=== PATIENT | female | born 1955 | race African-American/Black ===

== ENCOUNTER 2018-01-31 02:24 | Emergency (ER) | payer OTHER ==
[2018-01-31 02:42] VITALS: BP 118/73; PULSE 75; TEMP 97.5; BMI 26.6
--- NOTE | 2018-01-31 02:47 | PDOC ---
History of Present Illness - General Chief Complaint: Injury Stated Complaint: FALL/PAIN RT SIDE Time Seen by Provider: 01/31/18 02:32 - History of Present Illness Initial Comments: 01/31/18 02:35 62 year old female with a hx of DM, breast CA presents s/p mechanical fall in bathroom. No LOC, no head trauma reported. Patient states that she hit her R hip. She states pain 4/10 upon movement, 0/10 at rest. Did not take any pain medications. Denies fevers, chills, chest pain, SOB, nausea, vomiting, diarrhea. All: none Surg: shoulder surgeries b/l, L knee surgery Smoke: none Alcohol: none PCP: Dr. Heaton Past History - Travel Traveled outside of the country in the last 30 days: No Close contact w/someone who was outside of country & ill: No - Past Medical History Allergies/Adverse Reactions: Allergies Allergy/AdvReac Type Severity Reaction Status Date / Time aspirin Allergy Verified 01/31/18 03:01 Home Medications: Ambulatory Orders Gabapentin [Neurontin -] 300 mg PO Q8H 01/31/18 Glyburide [Micronase -] 2.5 mg PO DAILY@0700 01/31/18 Metformin HCl [Glucophage] 1,000 mg PO BID 01/31/18 Methocarbamol [Robaxin -] 500 mg PO TID #21 tablet 01/31/18 Cancer: Yes (breast ca) Review of Systems - Review of Systems Constitutional: Yes: Symptoms Reported HEENTM: Yes: Symptoms Reported Respiratory: Yes: Symptoms reported Cardiac (ROS): Yes: Symptoms Reported ABD/GI: Yes: Symptoms Reported : Yes: Symptoms Reported Musculoskeletal: Yes: Symptoms Reported Integumentary: Yes: Symptoms Reported Neurological: Yes: Symptoms reported *Physical Exam - Physical Exam Comments: 01/31/18 03:07 GENERAL: A&Ox3, no acute distress EYES: PERRLA, EOMI ENT: Moist mucus membranes NECK: No JVD LUNGS: CTA, no wheezes HEART: RRR, no murmurs ABDOMEN: Soft, nontender, BS present MUSCULOSKELETAL: No CVA Tenderness EXTREMITIES: 2+ pulses, no edema. NEUROLOGICAL: Cranial nerves II-XII intact Medical Decision Making - Medical Decision Making 01/31/18 03:09 62 year old female with hx of DM and breast CA presented s/p fall -R hip X ray ordered -patient does not currently want any medication for pain 01/31/18 03:19 -R hip X ray does not reveal any acute fractures *DC/Admit/Observation/Transfer Diagnosis at time of Disposition: Fall - Discharge Dispostion Disposition: HOME Condition at time of disposition: Stable Decision to Admit order: No - Prescriptions Prescriptions: Methocarbamol [Robaxin -] 500 mg PO TID #21 tablet - Referrals - Patient Instructions Additional Instructions: You were seen in the hospital for mechanical fall. Your hip x-ray was normal that did not show signs of any fractures. For muscle relaxant - we prescribed you Robaxin, take 500mg tablet up to three times a day for 7 days. For pain, you can take tylenol over the counter Please make an appointment with your primary care physician within 1 week of discharge. If you experience severe pain, shortness of breath, nausea, vomiting, diarrhea , fevers, or chills, please return to the emergency room. - Post Discharge Activity
--- NOTE | 2018-01-31 03:36 | PDOC ---
Attending Attestation - HPI HPI: 01/31/18 03:36 Patient is a 67 year old female with a significant past medical history of DM, breast CA, who presents to the ED with complaints of right hip pain, s/p fall that occurred just prior to ED arrival. Patient reports walking in her bathroom when she tripping, causing her to slip and fall onto her right hip causing immediate pain. Patient reports pain is a 4/10 in intensity when she tries to move but states there is no pain when she is still. She denies taking any medication for the pain, but states she decided to come into the ED for further evaluation after pain did not subside. Denies chest pain, Sob. Denies nausea, vomiting. Denies fevers, chills. Denies head trauma, loss of consciousness. Denies contact with sick individuals, out of state traveling. Denies any other symptoms. Allergies: Aspirin Social history: No smoking. No alcohol. No illicit drugs. Surgical history: shoulder surgeries b/l, L knee surgery PMD: Dr. Heaton <Stephen Gutierrez - Last Filed: 01/31/18 03:36> - Resident Resident Name: Norris Rivers - ED Attending Attestation I have performed the following: I have examined & evaluated the patient, The case was reviewed & discussed with the resident, I agree w/resident's findings & plan, Exceptions are as noted - Physicial Exam PE: 02/03/18 20:01 Physical Exam General Appearance: Yes: Appropriately Dressed. No: Apparent Distress, Intoxicated HEENT: positive: EOMI, IFEANYI, Normal ENT Inspection, Normal Voice, TMs Normal, Pharynx Normal. negative: Pale Conjunctivae, Photophobia, Scleral Icterus (R), Scleral Icterus (L) Neck: positive: Trachea midline, Normal Thyroid, Supple. negative: Tender, Rigid, Carotid bruit, Stridor, Lymphadenopathy (R), Lymphadenopathy (L), Thyromegaly Respiratory/Chest: positive: Lungs Clear, Normal Breath Sounds. negative: Chest Tender, Respiratory Distress, Accessory Muscle Use, Labored Respiration, RES, Crackles, Rales, Rhonchi, Stridor, Wheezing, Dullness Cardiovascular: positive: Regular Rhythm, Regular Rate, S1, S2. negative: Edema , JVD, Murmur, Bradycardia, Tachycardia Vascular Pulses: Dorsalis-Pedis (R): 2+, Doralis-Pedis (L): 2+ Gastrointestinal/Abdominal: positive: Normal Bowel Sounds, Flat, Soft. negative : Tender, Organomegaly, Pulsatile Mass, Increased Bowel Sounds, Decreased BS, Distended, Guarding, Rebound, Hernia, Hepatomegaly, Spleenomegaly Lymphatic: negative: Adenopathy, Tenderness Musculoskeletal: positive: Normal Inspection. negative: CVA Tenderness, Decreased Range of Motion Extremity: positive: Normal Capillary Refill, Normal Inspection, Normal Range of Motion, Pelvis Stable. negative: Tender, Pedal Edema, Swelling, Erythema Integumentary: positive: Normal Color, Dry, Warm. negative: Cyanotic, Erythema , Jaundice, Rash Neurologic: positive: dishwasher II-XII NML intact, Fully Oriented, Alert, Normal Mood/ Affect, Motor Strength 5/5. negative: EOM Palsy, Facial Droop, Sensory Deficit - Medical Decision Making 02/03/18 20:02 Pt treated and released <David Simon - Last Filed: 02/03/18 20:02>
[2018-01-31] MEDS ORDERED: ACETAMINOPHEN 325 MG TABLET (FP) ONE (03:43)
[2018-01-31] MEDS ORDERED: ACETAMINOPHEN 325 MG TABLET (FP) PO ONE (03:50)
== END 2018-01-31 03:55 | disposition home or self-care (01) ==
LOC: JER 02:24
DX: M25.551 Pain in right hip (principal); W18.39XA Other fall on same level, initial encounter; Y93.89 Activity, other specified; Y92.031 Bathroom in apartment as the place of occurrence of the external cause; Y99.8 Other external cause status; E11.9 Type 2 diabetes mellitus without complications; Z79.84 Long term (current) use of oral hypoglycemic drugs; Z85.3 Personal history of malignant neoplasm of breast
CPT/HCPCS: 73523-TC-FY; 99281-25

== ENCOUNTER 2019-10-12 00:50 | Inpatient (IN) | payer OTHER ==
[2019-10-12] MEDS ORDERED: SODIUM CHLORIDE 1,000 ML IV STA (02:25)
--- NOTE | 2019-10-12 02:25 | PDOC ---
History of Present Illness - General Chief Complaint: Rectal Bleed Stated Complaint: FALL Time Seen by Provider: 10/12/19 02:16 History Source: Patient Exam Limitations: No Limitations - History of Present Illness Initial Comments: 10/12/19 03:22 64 yo F with a hx of diverticulosis (requiring 6 episodes of transfusion last year), breast cancer s/p chemo (last administration 3 years ago), and NIDDM presents to the emergency department with bright red blood per rectum since yesterday with unwitnessed syncope that occurred while going to the bathroom. Per the patient, she has had abdominal "gurgling" but denies pain since yesterday in her LLQ without radiation. Per the patient, she has had 3x large bowel movements of bright red blood. She denies tarry stool. This night, she was sitting on the toilet, had a large bloody movement, and passed out, waking up on the floor and needing to crawl to the door to open it. Denies the following: back pain, fevers, chills, nausea, vomiting, dysuria, hematuria, constipation, diarrhea, leg pain/swelling, chest pain, and SOB. Her last colonoscopy was 1 year ago and polyps were seen. Denies hx of hemorrhoids. Allergies: ASA Past History - Past Medical History Allergies/Adverse Reactions: Allergies Allergy/AdvReac Type Severity Reaction Status Date / Time aspirin Allergy Verified 10/12/19 01:21 Home Medications: Ambulatory Orders Gabapentin [Neurontin] 300 mg PO TID 10/12/19 Metformin HCl [Glucophage] 500 mg PO BID 10/12/19 Multivitamins [Tab-A-Vit -] 1 tab PO DAILY 10/12/19 Cancer: Yes (breast ca) COPD: No Diabetes: Yes GI Disorders: Yes (diverticulitis) - Psycho Social/Smoking Cessation Hx Smoking History: Never smoked Have you smoked in the past 12 months: No Hx Alcohol Use: No Drug/Substance Use Hx: No Review of Systems - Review of Systems Able to Perform ROS?: Yes Is the patient limited Latvian proficient: No Constitutional: No: Chills, Diaphoresis, Fever, Weakness HEENTM: No: Eye Pain, Ear Pain, Nose Pain, Throat Pain, Mouth Pain Respiratory: No: Cough, Shortness of Breath, Hemoptysis Cardiac (ROS): Yes: Syncope. No: Chest Pain, Lightheadedness, Palpitations, Chest Tightness ABD/GI: Yes: Blood Streaked Bowels, Rectal Bleeding, Abdominal cramping. No: Constipated, Diarrhea, Nausea, Vomiting, Tarry Stools : No: Burning, Dysuria, Hematuria Musculoskeletal: No: Back Pain, Joint Pain, Neck Pain Integumentary: No: Bruising, Erythema, Rash Neurological: No: Headache, Numbness, Tingling, Tremors Psychiatric: No: Change in Appetite Endocrine: No: Unexplained Weight Loss Hematologic/Lymphatic: No: Anemia *Physical Exam - Vital Signs Last Vital Signs Temp Pulse Resp BP Pulse Ox 97.5 F L 56 L 18 103/54 L 100 10/12/19 01:10/12/19 01:10/12/19 01:10/12/19 01:10/12/19 01:22 - Physical Exam General Appearance: Yes: Nourished, Appropriately Dressed. No: Apparent Distress, Intoxicated HEENT: positive: EOMI, IFEANYI, Normal Voice, Symmetrical, Pharynx Normal, Pale Conjunctivae, Hearing Grossly Normal. negative: Scleral Icterus (R), Scleral Icterus (L), Muffled/Hoarse voice, Pharyngeal Erythema, Tonsillar Exudate, Tonsillar Erythema, Nasal Congestion, Rhinorrhea, Sinus Tenderness, Excessive drooling Neck: positive: Trachea midline, Supple. negative: Tender, Lymphadenopathy (R) , Lymphadenopathy (L), Tender lateral, Tender midline Respiratory/Chest: positive: Lungs Clear, Normal Breath Sounds. negative: Chest Tender, Respiratory Distress, Accessory Muscle Use, Crackles, Rales, Rhonchi, Stridor, Wheezing Cardiovascular: positive: Regular Rhythm, Regular Rate, S1, S2. negative: Systolic Murmur Gastrointestinal/Abdominal: positive: Normal Bowel Sounds, Flat, Soft. negative : Tender, Distended, Guarding, Rebound Rectal Exam: positive: normal rectal tone, heme positive stool, hemorrhoids ( external non thrombosed). negative: melena Lymphatic: negative: Adenopathy Musculoskeletal: positive: Normal Inspection. negative: CVA Tenderness, Vertebral Tenderness Extremity: positive: Normal Capillary Refill, Normal Inspection, Normal Range of Motion. negative: Tender, Swelling, Calf Tenderness Integumentary: positive: Normal Color, Dry, Warm. negative: Swelling, Ecchymosis Neurologic: positive: Fully Oriented, Alert, Normal Mood/Affect ED Treatment Course - LABORATORY CBC & Chemistry Diagram: 10/14/19 05:56 10/13/19 09:45 Medical Decision Making - Medical Decision Making 64 yo F with a hx of diverticulosis (requiring 6 episodes of transfusion last year), breast cancer s/p chemo (last administration 3 years ago), and NIDDM presents to the emergency department with bright red blood per rectum since yesterday with unwitnessed syncope that occurred while going to the bathroom. Initial vitals: Initial Vital Signs Temp Pulse Resp BP Pulse Ox 97.5 F L 56 L 18 103/54 L 100 10/12/19 01:22 10/12/19 01:22 10/12/19 01:22 10/12/19 01:22 10/12/19 01:22 Work up: ddx: patient presents to the emergency department s/p syncopal event in the setting of rectal bleeding bright red blood per rectum. on rectal exam, a non thrombosed external hemorrhoid with no internal hemorrhoids palpated. ddx: external vs internal hemorrhoids vs colitis vs diverticulosis vs diverticulitis vs colonic ca vs av malformation syncope: ddx includes cardiac etiology vs metabolic vs hypovolemia vs anemia Laboratory Tests 10/12/19 10/12/19 10/12/19 02:30 03:00 03:00 WBC 4.5 RBC 3.31 L Hgb 9.7 L Hct 29.0 L MCV 87.6 MCH 29.4 MCHC 33.6 RDW 14.9 Plt Count 188 MPV 7.8 Absolute Neuts (auto) 2.9 Neutrophils % 64.6 Lymphocytes % 26.3 Monocytes % 8.0 Eosinophils % 0.6 Basophils % 0.5 Nucleated RBC % 0 PT with INR INR Sodium 141 Potassium 4.3 Chloride 108 H Carbon Dioxide 28 Anion Gap 6 L BUN 17.9 Creatinine 0.7 Est GFR (CKD-EPI)AfAm 104.64 Est GFR (CKD-EPI)NonAf 90.29 Random Glucose 160 H Lactic Acid Calcium 8.6 Total Bilirubin 0.5 AST 15 ALT 19 Alkaline Phosphatase 57 Total Protein 6.8 Albumin 3.7 Stool Occult Blood Positive Blood Type Antibody Screen 10/12/19 10/12/19 10/12/19 03:00 03:00 03:00 WBC RBC Hgb Hct MCV MCH MCHC RDW Plt Count MPV Absolute Neuts (auto) Neutrophils % Lymphocytes % Monocytes % Eosinophils % Basophils % Nucleated RBC % PT with INR 11.50 INR 0.97 Sodium Potassium Chloride Carbon Dioxide Anion Gap BUN Creatinine Est GFR (CKD-EPI)AfAm Est GFR (CKD-EPI)NonAf Random Glucose Lactic Acid 1.4 Calcium Total Bilirubin AST ALT Alkaline Phosphatase Total Protein Albumin Stool Occult Blood Blood Type O POSITIVE Antibody Screen Positive awaiting troponin stool guiac positive hemoglobin 9.7 Patient was signed out to morning team for pending results of the head CT for likely admission for syncope in the setting of LGIB Discharge - Discharge Information Problems reviewed: Yes Clinical Impression/Diagnosis: LGI bleed Syncope Qualifiers: Syncope type: vasovagal syncope Qualified Code(s): R55 - Syncope and collapse Condition: Stable - Follow up/Referral - Patient Discharge Instructions - Post Discharge Activity
--- NOTE | 2019-10-12 03:43 | PDOC ---
Attending Attestation - Resident Resident Name: Michael Burton - ED Attending Attestation I have performed the following: I have examined & evaluated the patient, The case was reviewed & discussed with the resident, I agree w/resident's findings & plan - HPI HPI: 10/12/19 03:42 Pt has a hx of diverticulitis and she comes now with rectal bleeding 10/12/19 06:04 States that she lives in [facility] and that she was visiting her son. She was in the bathroom last night on the toilet bleeding. She lost consciousness and she only came to when she hit the ground. Pt has no complaints at this time, except that she was told in the past to seek care as soon as she begins to rectal bleed, given that she usually negins brisk bleeding. - Physicial Exam PE: 10/12/19 05:41 Afebrile Heart RRR Lung CTA B Abd soft NT ND - Medical Decision Making 10/12/19 04:25 Chem normal Pt inr normal CBC pending 10/12/19 05:42 CBC is stable; we will check a 4 hr level and then if normal. she will be discharged/dispositioned. The AM ER docs will receive signout on the patient
[2019-10-12 03:58] LABS: INR 0.97 (0.83-1.09); PROTHROMBIN TIME (PATIENT) 11.5 SEC (9.7-13.0)
[2019-10-12 04:11] LABS: ALBUMIN 3.7 g/dl (3.4-5.0); BILIRUBIN,TOTAL 0.5 mg/dL (0.2-1); BLOOD UREA NITROGEN 17.9 mg/dL (7-18); CALCIUM 8.6 mg/dL (8.5-10.1); CREATININE 0.7 mg/dL (0.55-1.3); POTASSIUM 4.3 mmol/L (3.5-5.1); TOT PROT 6.8 g/dl (6.4-8.2)
[2019-10-12 04:35] LABS: BASO % 0.5 % (0-2.0); EOS % 0.6 % (0-4.5); HEMOGLOBIN 9.7 GM/dL (10.7-15.3); LYMPH % 26.3 % (8-40); MCH 29.4 pg (25.7-33.7); MCHC 33.6 g/dl (32.0-36.0); MEAN CELL VOLUME 87.6 fl (80-96); MEAN PLT VOLUME 7.8 fl (7.5-11.1); NEUT % 64.6 % (42.8-82.8); PLATELET COUNT 188 K/MM3 (134-434); RBC 3.31 M/mm3 (3.60-5.2); RDW 14.9 % (11.6-15.6); WHITE BLOOD COUNT 4.5 K/mm3 (4.0-10.0)
[2019-10-12 06:22] LABS: URINE APPEARANCE CLEAR; URINE BILIRUBIN NEGATIVE (NEGATIVE); URINE COLOR YELLOW; URINE GLUCOSE (UA) NEGATIVE (NEGATIVE); URINE KETONE NEGATIVE (NEGATIVE); URINE LEUK ESTERASE NEGATIVE (NEGATIVE); URINE NITRITE NEGATIVE (NEGATIVE); URINE PROTEIN NEGATIVE (NEGATIVE); URINE UROBILINOGEN 0.2 mg/dL (0.2-1.0)
[2019-10-12 06:33] LABS: HEMATOCRIT 25.8 % (32.4-45.2); HEMOGLOBIN 8.5 GM/dL (10.7-15.3); MCH 29.1 pg (25.7-33.7); MEAN CELL VOLUME 88.2 fl (80-96); MEAN PLT VOLUME 7.3 fl (7.5-11.1); PLATELET COUNT 163 K/MM3 (134-434); RBC 2.93 M/mm3 (3.60-5.2); RDW 15.1 % (11.6-15.6); WHITE BLOOD COUNT 4.5 K/mm3 (4.0-10.0)
--- NOTE | 2019-10-12 08:32 | PDOC ---
History of Present Illness - General Chief Complaint: Rectal Bleed Stated Complaint: FALL Time Seen by Provider: 10/12/19 02:16 Past History - Past Medical History Allergies/Adverse Reactions: Allergies Allergy/AdvReac Type Severity Reaction Status Date / Time aspirin Allergy Verified 10/12/19 01:21 Home Medications: Ambulatory Orders Gabapentin [Neurontin] 300 mg PO TID 10/12/19 Metformin HCl [Glucophage] 500 mg PO BID 10/12/19 Multivitamins [Tab-A-Vit -] 1 tab PO DAILY 10/12/19 Cancer: Yes (breast ca) COPD: No Diabetes: Yes GI Disorders: Yes (diverticulitis) - Psycho Social/Smoking Cessation Hx Smoking History: Never smoked Have you smoked in the past 12 months: No Hx Alcohol Use: No Drug/Substance Use Hx: No Review of Systems - Review of Systems Is the patient limited Frisian proficient: No *Physical Exam - Vital Signs Last Vital Signs Temp Pulse Resp BP Pulse Ox 97.5 F L 58 L 18 104/57 L 100 10/12/19 01:22 10/12/19 04:14 10/12/19 04:14 10/12/19 04:14 10/12/19 04:14 ED Treatment Course - LABORATORY CBC & Chemistry Diagram: 10/12/19 06:20 10/12/19 03:00 - ADDITIONAL ORDERS Additional order review: Laboratory Results 10/12/19 10/12/19 10/12/19 05:55 03:00 03:00 PT with INR INR Sodium Potassium Chloride Carbon Dioxide Anion Gap BUN Creatinine Est GFR (CKD-EPI)AfAm Est GFR (CKD-EPI)NonAf Random Glucose Lactic Acid Calcium Total Bilirubin AST ALT Alkaline Phosphatase Troponin I < 0.02 Total Protein Albumin Urine Color Yellow Urine Appearance Clear Urine pH 7.0 Ur Specific [place] 1.013 Urine Protein Negative Urine Glucose (UA) Negative Urine Ketones Negative Urine Blood Negative Urine Nitrite Negative Urine Bilirubin Negative Urine Urobilinogen 0.2 Ur Leukocyte Esterase Negative Stool Occult Blood Blood Type O POSITIVE Antibody Screen Positive Antibody Identification Anti e Antigen Identification E Antigen - NEGATIVE 10/12/19 10/12/19 10/12/19 03:00 03:00 03:00 PT with INR 11.50 INR 0.97 Sodium 141 Potassium 4.3 Chloride 108 H Carbon Dioxide 28 Anion Gap 6 L BUN 17.9 Creatinine 0.7 Est GFR (CKD-EPI)AfAm 104.64 Est GFR (CKD-EPI)NonAf 90.29 Random Glucose 160 H Lactic Acid 1.4 Calcium 8.6 Total Bilirubin 0.5 AST 15 ALT 19 Alkaline Phosphatase 57 Troponin I Total Protein 6.8 Albumin 3.7 Urine Color Urine Appearance Urine pH Ur Specific [place] Urine Protein Urine Glucose (UA) Urine Ketones Urine Blood Urine Nitrite Urine Bilirubin Urine Urobilinogen Ur Leukocyte Esterase Stool Occult Blood Blood Type Antibody Screen Antibody Identification Antigen Identification 10/12/19 02:30 PT with INR INR Sodium Potassium Chloride Carbon Dioxide Anion Gap BUN Creatinine Est GFR (CKD-EPI)AfAm Est GFR (CKD-EPI)NonAf Random Glucose Lactic Acid Calcium Total Bilirubin AST ALT Alkaline Phosphatase Troponin I Total Protein Albumin Urine Color Urine Appearance Urine pH Ur Specific [place] Urine Protein Urine Glucose (UA) Urine Ketones Urine Blood Urine Nitrite Urine Bilirubin Urine Urobilinogen Ur Leukocyte Esterase Stool Occult Blood Positive Blood Type Antibody Screen Antibody Identification Antigen Identification 10/12/19 10/12/19 06:20 03:00 RBC 2.93 L 3.31 L MCV 88.2 87.6 MCHC 33.0 33.6 RDW 15.1 14.9 MPV 7.3 L 7.8 Neutrophils % 64.6 Lymphocytes % 26.3 Monocytes % 8.0 Eosinophils % 0.6 Basophils % 0.5 - Medications Given in the ED: ED Medications Discontinued Medications Generic Name Dose Route Start Last Admin Trade Name Freq PRN Reason Stop Dose Admin Sodium Chloride 1,000 mls @ 1,000 mls/hr 10/12/19 02:25 10/12/19 03:20 Normal Saline - IV 10/12/19 03:24 1,000 mls/hr ASDIR STA Administration Medical Decision Making - Medical Decision Making 10/12/19 08:29 S/O from night team 64 yo F with a hx of diverticulosis (requiring 6 episodes of transfusion last year), breast cancer s/p chemo (last administration 3 years ago), and NIDDM presents to the emergency department with bright red blood per rectum since yesterday with unwitnessed syncope that occurred while going to the bathroom. admit for syncope, anemia and rectal bleed Discharge - Discharge Information Clinical Impression/Diagnosis: LGI bleed, Syncope Condition: Stable - Admission Yes - Follow up/Referral - Patient Discharge Instructions - Post Discharge Activity
--- NOTE | 2019-10-12 08:36 | PDOC ---
*Physical Exam - Vital Signs Last Vital Signs Temp Pulse Resp BP Pulse Ox 97.5 F L 58 L 18 104/57 L 100 10/12/19 01:22 10/12/19 04:14 10/12/19 04:14 10/12/19 04:14 10/12/19 04:14 ED Treatment Course - LABORATORY CBC & Chemistry Diagram: 10/13/19 09:45 10/13/19 09:45 - ADDITIONAL ORDERS Additional order review: Laboratory Results 10/12/19 10/12/19 10/12/19 05:55 03:00 03:00 PT with INR INR Sodium Potassium Chloride Carbon Dioxide Anion Gap BUN Creatinine Est GFR (CKD-EPI)AfAm Est GFR (CKD-EPI)NonAf Random Glucose Lactic Acid Calcium Total Bilirubin AST ALT Alkaline Phosphatase Troponin I < 0.02 Total Protein Albumin Urine Color Yellow Urine Appearance Clear Urine pH 7.0 Ur Specific [place] 1.013 Urine Protein Negative Urine Glucose (UA) Negative Urine Ketones Negative Urine Blood Negative Urine Nitrite Negative Urine Bilirubin Negative Urine Urobilinogen 0.2 Ur Leukocyte Esterase Negative Stool Occult Blood Blood Type O POSITIVE Antibody Screen Positive Antibody Identification Anti e Antigen Identification E Antigen - NEGATIVE 10/12/19 10/12/19 10/12/19 03:00 03:00 03:00 PT with INR 11.50 INR 0.97 Sodium 141 Potassium 4.3 Chloride 108 H Carbon Dioxide 28 Anion Gap 6 L BUN 17.9 Creatinine 0.7 Est GFR (CKD-EPI)AfAm 104.64 Est GFR (CKD-EPI)NonAf 90.29 Random Glucose 160 H Lactic Acid 1.4 Calcium 8.6 Total Bilirubin 0.5 AST 15 ALT 19 Alkaline Phosphatase 57 Troponin I Total Protein 6.8 Albumin 3.7 Urine Color Urine Appearance Urine pH Ur Specific [place] Urine Protein Urine Glucose (UA) Urine Ketones Urine Blood Urine Nitrite Urine Bilirubin Urine Urobilinogen Ur Leukocyte Esterase Stool Occult Blood Blood Type Antibody Screen Antibody Identification Antigen Identification 10/12/19 02:30 PT with INR INR Sodium Potassium Chloride Carbon Dioxide Anion Gap BUN Creatinine Est GFR (CKD-EPI)AfAm Est GFR (CKD-EPI)NonAf Random Glucose Lactic Acid Calcium Total Bilirubin AST ALT Alkaline Phosphatase Troponin I Total Protein Albumin Urine Color Urine Appearance Urine pH Ur Specific [place] Urine Protein Urine Glucose (UA) Urine Ketones Urine Blood Urine Nitrite Urine Bilirubin Urine Urobilinogen Ur Leukocyte Esterase Stool Occult Blood Positive Blood Type Antibody Screen Antibody Identification Antigen Identification 10/12/19 10/12/19 06:20 03:00 RBC 2.93 L 3.31 L MCV 88.2 87.6 MCHC 33.0 33.6 RDW 15.1 14.9 MPV 7.3 L 7.8 Neutrophils % 64.6 Lymphocytes % 26.3 Monocytes % 8.0 Eosinophils % 0.6 Basophils % 0.5 - Medications Given in the ED: ED Medications Discontinued Medications Generic Name Dose Route Start Last Admin Trade Name Lisa PRN Reason Stop Dose Admin Sodium Chloride 1,000 mls @ 1,000 mls/hr 10/12/19 02:25 10/12/19 03:20 Normal Saline - IV 10/12/19 03:24 1,000 mls/hr ASDIR STA Administration Medical Decision Making - Medical Decision Making 10/12/19 08:35 S/O from night team 64 yo F with a hx of diverticulosis (requiring 6 episodes of transfusion last year), breast cancer s/p chemo (last administration 3 years ago), and NIDDM presents to the emergency department with bright red blood per rectum since yesterday with unwitnessed syncope that occurred while going to the bathroom. admit for syncope, anemia and rectal bleed Discussed case with Dr. Whitfield, agrees to tele admit with GI consult GI medtronics technician service states Dr. Wolff is medtronics technician. Call placed to Dr. Wolff, states he is not medtronics technician, dr. Tyree Perez is and she is in the endoscopy suit. Call placed to Endoscopy suit, Dr. Clements will be available at [facility] at 10 am, message was left with the physician office secretary to have Dr. Clements call the ER back for a consult Called Endoscopy again, physician office secretary states she will alert Dr. Bullard when she arrives for evaluation. Care of pt transferred to hospitalist Discharge - Discharge Information Problems reviewed: Yes Clinical Impression/Diagnosis: LGI bleed Syncope Qualifiers: Syncope type: vasovagal syncope Qualified Code(s): R55 - Syncope and collapse Condition: Stable - Follow up/Referral - Patient Discharge Instructions - Post Discharge Activity
--- NOTE | 2019-10-12 09:07 | HP ---
Admitting History and Physical - Primary Care Physician PCP: Polo Whitfield - Admission Chief Complaint: rectal bleed History of Present Illness: 64 yo F with a hx of diverticulosis (requiring 6 episodes of transfusion last year), breast cancer s/p chemo (last administration 3 years ago), and NIDDM presents to the emergency department with bright red blood per rectum since yesterday with unwitnessed syncope that occurred while going to the bathroom. Per the patient, she has had abdominal "gurgling" but denies pain since yesterday in her LLQ without radiation. Per the patient, she has had 3x large bowel movements of bright red blood. She denies tarry stool. This night, she was sitting on the toilet, had a large bloody movement, and passed out, waking up on the floor and needing to crawl to the door to open it. Denies the following: back pain, fevers, chills, nausea, vomiting, dysuria, hematuria, constipation, diarrhea, leg pain/swelling, chest pain, and SOB. Her last colonoscopy was 1 year ago and polyps were seen. Denies hx of hemorrhoids. - Past Medical History Gastrointestinal: Yes: Diverticulosis Endocrine: Yes: Diabetes Mellitus - Smoking History Smoking history: Never smoked Have you smoked in the past 12 months: No - Alcohol/Substance Use Hx Alcohol Use: No Home Medications - Allergies Allergies/Adverse Reactions: Allergies Allergy/AdvReac Type Severity Reaction Status Date / Time aspirin Allergy Verified 10/12/19 01:21 - Home Medications Home Medications: Ambulatory Orders Gabapentin [Neurontin] 300 mg PO TID 10/12/19 Metformin HCl [Glucophage] 500 mg PO BID 10/12/19 Multivitamins [Tab-A-Vit -] 1 tab PO DAILY 10/12/19 Physical Examination Vital Signs: Vital Signs Temperature 97.5 F L 10/12/19 01:22 Pulse Rate 58 L 10/12/19 04:14 Respiratory Rate 18 10/12/19 04:14 Blood Pressure 104/57 L 10/12/19 04:14 O2 Sat by Pulse Oximetry (%) 100 10/12/19 04:14 Constitutional: Yes: No Distress HENT: Yes: Atraumatic Neck: Yes: Supple Cardiovascular: Yes: Regular Rate and Rhythm Respiratory: Yes: CTA Bilaterally Gastrointestinal: Yes: Normal Bowel Sounds Extremities: Yes: WNL Edema: No Neurological: Yes: Alert, Oriented Labs: CBC, BMP 10/12/19 06:20 10/12/19 03:00 Imaging - Results Cat Scan: Report Reviewed Problem List - Problems (1) LGI bleed Assessment/Plan: monitor h/h gi cosult Code(s): K92.2 - GASTROINTESTINAL HEMORRHAGE, UNSPECIFIED (2) Syncope Code(s): R55 - SYNCOPE AND COLLAPSE Qualifiers: Syncope type: vasovagal syncope Qualified Code(s): R55 - Syncope and collapse (3) Fall Code(s): W19.XXXA - UNSPECIFIED FALL, INITIAL ENCOUNTER Assessment/Plan Laboratory Tests 10/12/19 10/12/19 10/12/19 02:30 03:00 03:00 WBC 4.5 RBC 3.31 L Hgb 9.7 L Hct 29.0 L MCV 87.6 MCH 29.4 MCHC 33.6 RDW 14.9 Plt Count 188 MPV 7.8 Absolute Neuts (auto) 2.9 Neutrophils % 64.6 Lymphocytes % 26.3 Monocytes % 8.0 Eosinophils % 0.6 Basophils % 0.5 Nucleated RBC % 0 PT with INR INR Sodium 141 Potassium 4.3 Chloride 108 H Carbon Dioxide 28 Anion Gap 6 L BUN 17.9 Creatinine 0.7 Est GFR (CKD-EPI)AfAm 104.64 Est GFR (CKD-EPI)NonAf 90.29 Random Glucose 160 H Lactic Acid Calcium 8.6 Total Bilirubin 0.5 AST 15 ALT 19 Alkaline Phosphatase 57 Troponin I Total Protein 6.8 Albumin 3.7 Urine Color Urine Appearance Urine pH Ur Specific [place] Urine Protein Urine Glucose (UA) Urine Ketones Urine Blood Urine Nitrite Urine Bilirubin Urine Urobilinogen Ur Leukocyte Esterase Stool Occult Blood Positive Blood Type Antibody Screen Antibody Identification Antigen Identification 10/12/19 10/12/19 10/12/19 03:00 03:00 03:00 WBC RBC Hgb Hct MCV MCH MCHC RDW Plt Count MPV Absolute Neuts (auto) Neutrophils % Lymphocytes % Monocytes % Eosinophils % Basophils % Nucleated RBC % PT with INR 11.50 INR 0.97 Sodium Potassium Chloride Carbon Dioxide Anion Gap BUN Creatinine Est GFR (CKD-EPI)AfAm Est GFR (CKD-EPI)NonAf Random Glucose Lactic Acid 1.4 Calcium Total Bilirubin AST ALT Alkaline Phosphatase Troponin I Total Protein Albumin Urine Color Urine Appearance Urine pH Ur Specific [place] Urine Protein Urine Glucose (UA) Urine Ketones Urine Blood Urine Nitrite Urine Bilirubin Urine Urobilinogen Ur Leukocyte Esterase Stool Occult Blood Blood Type O POSITIVE Antibody Screen Positive Antibody Identification Anti e Antigen Identification E Antigen - NEGATIVE 10/12/19 10/12/19 10/12/19 03:00 05:55 06:20 WBC 4.5 RBC 2.93 L Hgb 8.5 L Hct 25.8 L MCV 88.2 MCH 29.1 MCHC 33.0 RDW 15.1 Plt Count 163 MPV 7.3 L Absolute Neuts (auto) Neutrophils % Lymphocytes % Monocytes % Eosinophils % Basophils % Nucleated RBC % PT with INR INR Sodium Potassium Chloride Carbon Dioxide Anion Gap BUN Creatinine Est GFR (CKD-EPI)AfAm Est GFR (CKD-EPI)NonAf Random Glucose Lactic Acid Calcium Total Bilirubin AST ALT Alkaline Phosphatase Troponin I < 0.02 Total Protein Albumin Urine Color Yellow Urine Appearance Clear Urine pH 7.0 Ur Specific [place] 1.013 Urine Protein Negative Urine Glucose (UA) Negative Urine Ketones Negative Urine Blood Negative Urine Nitrite Negative Urine Bilirubin Negative Urine Urobilinogen 0.2 Ur Leukocyte Esterase Negative Stool Occult Blood Blood Type Antibody Screen Antibody Identification Antigen Identification Active Medications Generic Name Dose Route Start Last Admin Trade Name Jonathanq PRN Reason Stop Dose Admin Gabapentin 300 mg 10/12/19 14:00 10/12/19 14:01 Neurontin - PO 300 mg TID AMY Administration Metformin HCl 500 mg 10/12/19 10:02 Glucophage - PO BIDI AMY Active Medications Generic Name Dose Route Start Last Admin Trade Name Freq PRN Reason Stop Dose Admin Gabapentin 300 mg 10/12/19 14:00 10/13/19 14:00 Neurontin - PO 300 mg TID AMY Administration Metformin HCl 500 mg 10/12/19 10:02 10/13/19 16:25 Glucophage - PO Not Given BIDI AMY
--- NOTE | 2019-10-12 09:11 | EKG ---
Test Reason : Blood Pressure : / mmHG Vent. Rate : 057 BPM Atrial Rate : 057 BPM P-R Int : 146 ms QRS Dur : 084 ms QT Int : 470 ms P-R-T Axes : 037 013 019 degrees QTc Int : 457 ms SINUS BRADYCARDIA MINIMAL VOLTAGE CRITERIA FOR LVH, MAY BE NORMAL VARIANT NONSPECIFIC T WAVE ABNORMALITY ABNORMAL ECG NO PREVIOUS ECGS AVAILABLE Confirmed by Howie Seals ([id number]) on 10/12/2019 9:10:47 AM Referred By: Confirmed By:Howie Seals
--- NOTE | 2019-10-12 09:20 | CON.CARD ---
Consult Consult Specialty:: Cardiology Referred by:: Polo Whitfield MD Reason for Consultation:: Hematochezia, syncope - History of Present Illness Chief Complaint: Hematochezia, syncope History of Present Illness: 64 yo F with a hx of diverticulosis (requiring 6 episodes of transfusion last year), breast cancer s/p chemo (last administration 3 years ago), and NIDDM presents to the emergency department with bright red blood per rectum with unwitnessed syncope that occurred while going to the bathroom. Per the patient, she has had abdominal "gurgling" but denies pain since yesterday in her LLQ without radiation. Per the patient, she has had 3x large bowel movements of bright red blood. She denies tarry stool. This night, she was sitting on the toilet, had a large bloody movement, and passed out, waking up on the floor and needing to crawl to the door to open it. Denies the following: Fevers, chills, nausea, vomiting, dysuria, hematuria, constipation, diarrhea, leg pain/swelling , chest pain, SOB, palpitations, diaphoesis. Her last colonoscopy was 1 year ago and polyps were seen. Denies hx of hemorrhoids. Allergies: ASA - History Source History Provided By: Patient Limitations to Obtaining History: No Limitations - Alcohol/Substance Use Hx Alcohol Use: No - Smoking History Smoking history: Never smoked Have you smoked in the past 12 months: No Home Medications - Allergies Allergies/Adverse Reactions: Allergies Allergy/AdvReac Type Severity Reaction Status Date / Time aspirin Allergy Verified 10/12/19 01:21 - Home Medications Home Medications: Ambulatory Orders Gabapentin [Neurontin] 300 mg PO TID 10/12/19 Metformin HCl [Glucophage] 500 mg PO BID 10/12/19 Multivitamins [Tab-A-Vit -] 1 tab PO DAILY 10/12/19 Review of Systems - Review of Systems Gastrointestinal: reports: Rectal Bleeding Neurological: reports: Syncope Vital Signs: Vital Signs Temperature 97.5 F L 10/12/19 01:22 Pulse Rate 58 L 10/12/19 04:14 Respiratory Rate 18 10/12/19 04:14 Blood Pressure 104/57 L 10/12/19 04:14 O2 Sat by Pulse Oximetry (%) 100 10/12/19 04:14 Constitutional: Yes: No Distress, Calm Neck: Yes: Supple Respiratory: Yes: Regular, CTA Bilaterally Gastrointestinal: Yes: Normal Bowel Sounds, Soft Cardiovascular: Yes: Regular Rate and Rhythm JVD: No Carotid Bruit: No Heart Sounds: Yes: S1, S2 Murmur: Yes: Systolic Murmur, Grade 1 Edema: No - Other Data Labs, Other Data: CBC, BMP 10/12/19 06:20 10/12/19 03:00 INR, PTT INR 0.97 (0.83-1.09) 10/12/19 03:00 Troponin, BNP 10/12/19 03:00 Troponin I < 0.02 Troponin, BNP 10/12/19 03:00 Troponin I < 0.02 SB @ 57 min criteria LVH nonspec T changes Ejection Fraction %: LVEF > or = 40 % Imaging - Results Chest X-ray: Report Reviewed (NAD) Cat Scan: Report Reviewed (HCT: No acute changes c-spine: No fracture or dislocation) Problem List - Problems (1) Anemia Code(s): D64.9 - ANEMIA, UNSPECIFIED Qualifiers: Iron deficiency anemia type: chronic blood loss (2) LGI bleed Code(s): K92.2 - GASTROINTESTINAL HEMORRHAGE, UNSPECIFIED (3) Syncope Code(s): R55 - SYNCOPE AND COLLAPSE Qualifiers: Syncope type: vasovagal syncope Qualified Code(s): R55 - Syncope and collapse (4) Type 2 diabetes mellitus Code(s): E11.9 - TYPE 2 DIABETES MELLITUS WITHOUT COMPLICATIONS Qualifiers: Diabetes mellitus supervisor customer records division insulin use: without custodial use Assessment/Plan 1. Syncope -> situational vs orthostatic 2. Hematochezia with h/o diverticular bleeds requiring transfusion 3. Acute blood loss anemia 4. Type 2 DM 5. Breast cancer s/p chemo (last administration 3 years ago) P:1. Check orthostasis, volume resuscitate, monitor Hgb and transfuse as needed 2. Colonoscopy vs bleeding scan per GI 3. Thank you for consultative opportunity
[2019-10-12] MEDS ORDERED: GABAPENTIN 100 MG CAPSULE ONE ×2 (09:23→14:02)
[2019-10-12] MEDS ORDERED: metFORMIN HCL 500 MG TABLET (FP) PO SCH (10:00)
[2019-10-12] MEDS: GABAPENTIN 300 MG CAPSULE PO SCH ×2 (14:01→22:32)
--- NOTE | 2019-10-12 14:02 | CON.GI ---
Consult Consult Specialty:: GI Referred by:: ED Reason for Consultation:: BRBPR - History of Present Illness Chief Complaint: BRBPR History of Present Illness: 64F with h/o recurrent diverticular bleeds presenting for the evaluation of painless hematochezia that happened last evening. Reported rumbling int he abdomen but no pain. Has history of diverticular bleeds in the past, most recently a few months ago late 2019 and was scoped at [place], was [place] son[place] Last episode of bleeding was around midnight before she came in. Had syncope at home for which she was seen by cardiology. Is currently pain free. - History Source History Provided By: Patient Limitations to Obtaining History: No Limitations - Past Medical History Endocrine: Yes: Diabetes Mellitus - Past Surgical History Past Surgical History: Yes: Arthrosocopy - Alcohol/Substance Use Hx Alcohol Use: No - Smoking History Smoking history: Never smoked Have you smoked in the past 12 months: No Home Medications - Allergies Allergies/Adverse Reactions: Allergies Allergy/AdvReac Type Severity Reaction Status Date / Time aspirin Allergy Verified 10/12/19 01:21 - Home Medications Home Medications: Ambulatory Orders Gabapentin [Neurontin] 300 mg PO TID 10/12/19 Metformin HCl [Glucophage] 500 mg PO BID 10/12/19 Multivitamins [Tab-A-Vit -] 1 tab PO DAILY 10/12/19 Review of Systems - Review of Systems Constitutional: reports: No Symptoms Eyes: reports: No Symptoms HENT: reports: No Symptoms Neck: reports: No Symptoms Cardiovascular: reports: No Symptoms Respiratory: reports: No Symptoms Gastrointestinal: reports: Rectal Bleeding. denies: Abdominal Pain Musculoskeletal: reports: No Symptoms Neurological: reports: Change in LOC, Syncope Endocrine: reports: No Symptoms Hematology/Lymphatic: reports: No Symptoms Pain Intensity: 0 Physical Exam-GI Vital Signs: Vital Signs Temperature 97.5 F L 10/12/19 01:22 Pulse Rate 58 L 10/12/19 04:14 Respiratory Rate 18 10/12/19 04:14 Blood Pressure 104/57 L 10/12/19 04:14 O2 Sat by Pulse Oximetry (%) 100 10/12/19 04:14 Constitutional: Yes: Well Nourished, No Distress Eyes: Yes: WNL Cardiovascular: Yes: Regular Rate and Rhythm Respiratory: Yes: CTA Bilaterally ...Palpate: Yes: Soft. No: Tenderness ...Percussion: No: Fluid Wave, Tympanitic ...Rectal Exam: Yes: Other (VITALIY without blood, stool, mass) Musculoskeletal: Yes: WNL Edema: No Neurological: Yes: Alert, Oriented Psychiatric: Yes: Alert, Oriented Labs: CBC, BMP 10/12/19 06:20 10/12/19 03:00 INR, PTT INR 0.97 (0.83-1.09) 10/12/19 03:00 Assessment/Plan Likely recurrent diverticular bleed given hx - this is what she has been told by her doctors. Seems to have stopped bleeding. Advised that she obtain prior colonoscopy report from her GI doctor's office in [place] Monitor hgb If active bleeding would perform CTA
[2019-10-12] MEDS: metFORMIN HCL 500 MG TABLET (FP) PO SCH (17:36)
--- NOTE | 2019-10-13 07:50 | PN ---
Progress Note (short form) - Note Progress Note: Chief Complaint: Events noted, notes reviewed, denies any recurrent syncope, denies any dizziness or lightheadedness, denies any chest discomfort, denies any dyspnea, denies any abdominal discomfort History of Present Illness: Seen and examined on telemetry. Events noted, notes reviewed, denies any recurrent syncope, denies any dizziness or lightheadedness, denies any chest discomfort, denies any dyspnea, denies any abdominal discomfort Medications: Current Medications Gabapentin (Neurontin -) 300 mg PO TID [facility] Last Admin: 10/12/19 22:32 Dose: 300 mg Metformin HCl (Glucophage -) 500 mg PO BIDI [facility] Last Admin: 10/12/19 17:36 Dose: Not Given Review of Systems - Review of Systems Constitutional: denies: Chills, Fever Cardiovascular: As noted above Respiratory: denies: Cough or Sputum Production Gastrointestinal: denies: Nausea, Vomiting, Diarrhea, Constipation or Abdominal Pain Neurological: denies: Headaches Vital Signs: Last Vital Signs Temp Pulse Resp BP Pulse Ox 98.2 F 64 20 107/63 100 10/13/19 05:00 10/13/19 06:34 10/13/19 06:34 10/13/19 05:00 10/12/19 23:15 Intake & Output 10/10/19 10/11/19 10/12/19 10/13/19 23:59 23:59 23:59 23:59 Intake Total 120 120 Balance 120 120 Weight 188 lb 3.2 oz Neck: Supple Negative JVD No Bruit Respiratory: Clear to A&P bilaterally Cardiovascular: S1 S2 Regular Rate and Rhythm Gastrointestinal: Soft Benign Normal Bowel Sounds Ext: Negative Edema Labs: CBC, BMP 10/12/19 06:20 10/12/19 03:00 Hepatic Panel Total Bilirubin 0.5 mg/dL (0.2-1) 10/12/19 03:00 AST 15 U/L (15-37) 10/12/19 03:00 ALT 19 U/L (13-61) 10/12/19 03:00 Alkaline Phosphatase 57 U/L (45-117) 10/12/19 03:00 Albumin 3.7 g/dl (3.4-5.0) 10/12/19 03:00 INR, PTT INR 0.97 (0.83-1.09) 10/12/19 03:00 Assessment/Plan ASSESSMENT: 1. Syncope most likely related to orthostatic hypotension secondary to acute hypovolemia reactionary to 2. Hematochezia history of diverticular bleeds requiring transfusion 3. Acute blood loss anemia 4. [id number] diabetes mellitus 5. History of breast carcinoma post chemotherapy PLAN: 1. Monitor hemoglobin and transfuse to maintain hemoglobin equal or greater than 8.0 2. Evaluation of source of bleed as per gastrointestinal service 3. No additional cardiovascular evaluation or intervention is indicated at this point, patient may be transferred to floor care Stefani Fishman M.D.
[2019-10-13] MEDS: GABAPENTIN 300 MG CAPSULE PO SCH ×3 (07:53→21:19)
[2019-10-13] MEDS: metFORMIN HCL 500 MG TABLET (FP) PO SCH ×2 (07:54→16:25)
[2019-10-13 09:56] LABS: HEMATOCRIT 25.5 % (32.4-45.2); HEMOGLOBIN 8.4 GM/dL (10.7-15.3); MEAN CELL VOLUME 87.8 fl (80-96); MEAN PLT VOLUME 7.2 fl (7.5-11.1); PLATELET COUNT 154 K/MM3 (134-434); WHITE BLOOD COUNT 3.2 K/mm3 (4.0-10.0)
[2019-10-13 10:31] LABS: ALBUMIN 3.4 g/dl (3.4-5.0); BILIRUBIN,TOTAL 0.3 mg/dL (0.2-1); BLOOD UREA NITROGEN 12.6 mg/dL (7-18); CALCIUM 8.7 mg/dL (8.5-10.1); CREATININE 0.7 mg/dL (0.55-1.3); TOT PROT 6.1 g/dl (6.4-8.2)
--- NOTE | 2019-10-13 16:42 | PN.GI ---
GI Progress Note Subjective: No bleeding since admission States having last colonoscopy performed 05/07: revealed "Pockets" No abdominal pain - Objective Vital Signs: Vital Signs Temperature 98.4 F 10/13/19 13:25 Pulse Rate 63 10/13/19 13:25 Respiratory Rate 20 10/13/19 13:25 Blood Pressure 109/63 10/13/19 13:35 O2 Sat by Pulse Oximetry (%) 97 10/13/19 10:37 Constitutional: Calm Eyes: No: Sclera Icterus Cardiovascular: Yes: Bradycardia. No: Murmur Respiratory: Yes: CTA Bilaterally Gastrointestinal Inspection: No: Distention ...Auscultate: Yes: Normoactive Bowel Sounds ...Palpate: Yes: Soft. No: Hepatomegaly, Splenomegaly, Tenderness Edema: No (No LE edema) Neurological: Yes: Alert Labs: CBC, BMP 10/13/19 09:45 10/13/19 09:45 INR, PTT INR 0.97 (0.83-1.09) 10/12/19 03:00 Hepatic Panel Total Bilirubin 0.3 mg/dL (0.2-1) 10/13/19 09:45 AST 12 U/L (15-37) L 10/13/19 09:45 ALT 17 U/L (13-61) 10/13/19 09:45 Alkaline Phosphatase 50 U/L (45-117) 10/13/19 09:45 Albumin 3.4 g/dl (3.4-5.0) 10/13/19 09:45 Problem List - Problems (1) LGI bleed Assessment/Plan: Previous colonoscopy report not in chart as of yet No overt bleeding since admission Gave Ms. Quevedo option of repeating colonoscopy tomorrow. She stated that she would rather wait and if no further bleeding, follow-up with her electrical helper where she lives in [facility]. If active rebleeding, transfer to ICU, NPO and obtain CTA to help localize bleeding Obtain prior colonoscopy report Monitor H/H and for overt bleeding If no further bleeding, advance diet in AM and monitor. Code(s): K92.2 - GASTROINTESTINAL HEMORRHAGE, UNSPECIFIED
--- NOTE | 2019-10-13 16:51 | PN ---
Progress Note, Physician - Current Medication List Current Medications: Active Medications Gabapentin (Neurontin -) 300 mg PO TID [facility] Last Admin: 10/13/19 14:00 Dose: 300 mg Metformin HCl (Glucophage -) 500 mg PO BIDI [facility] Last Admin: 10/13/19 16:25 Dose: Not Given - Objective Vital Signs: Vital Signs Temperature 98.4 F 10/13/19 13:25 Pulse Rate 63 10/13/19 13:25 Respiratory Rate 20 10/13/19 13:25 Blood Pressure 109/63 10/13/19 13:35 O2 Sat by Pulse Oximetry (%) 97 10/13/19 10:37 Labs: CBC, BMP 10/13/19 09:45 10/13/19 09:45 INR, PTT INR 0.97 (0.83-1.09) 10/12/19 03:00 Problem List - Problems (1) LGI bleed Code(s): K92.2 - GASTROINTESTINAL HEMORRHAGE, UNSPECIFIED (2) Syncope Code(s): R55 - SYNCOPE AND COLLAPSE Qualifiers: Syncope type: vasovagal syncope Qualified Code(s): R55 - Syncope and collapse (3) Fall Code(s): W19.XXXA - UNSPECIFIED FALL, INITIAL ENCOUNTER
--- NOTE | 2019-10-13 17:25 | PN ---
Progress Note, Physician History of Present Illness: no more rectal bleeding on full liquid diet - Current Medication List Current Medications: Active Medications Gabapentin (Neurontin -) 300 mg PO TID [facility] Last Admin: 10/13/19 14:00 Dose: 300 mg Metformin HCl (Glucophage -) 500 mg PO BIDI [facility] Last Admin: 10/13/19 16:25 Dose: Not Given - Objective Vital Signs: Vital Signs Temperature 98.4 F 10/13/19 13:25 Pulse Rate 63 10/13/19 13:25 Respiratory Rate 20 10/13/19 13:25 Blood Pressure 109/63 10/13/19 13:35 O2 Sat by Pulse Oximetry (%) 97 10/13/19 10:37 Constitutional: Yes: No Distress HENT: Yes: Atraumatic Neck: Yes: Supple Cardiovascular: Yes: Regular Rate and Rhythm Respiratory: Yes: CTA Bilaterally Gastrointestinal: Yes: Normal Bowel Sounds Extremities: Yes: WNL Edema: No Peripheral Pulses WNL: Yes Neurological: Yes: Alert, Oriented Labs: CBC, BMP 10/13/19 09:45 10/13/19 09:45 INR, PTT INR 0.97 (0.83-1.09) 10/12/19 03:00 Problem List - Problems (1) LGI bleed Assessment/Plan: h/h staying above 8 will transfuse 1 unit prbc no more rectal bleeding start regular diet patient refusing colonoscopy at this point wants to see her doctors [place] transfuse 1u prbc Code(s): K92.2 - GASTROINTESTINAL HEMORRHAGE, UNSPECIFIED (2) Syncope Code(s): R55 - SYNCOPE AND COLLAPSE Qualifiers: Syncope type: vasovagal syncope Qualified Code(s): R55 - Syncope and collapse (3) Fall Code(s): W19.XXXA - UNSPECIFIED FALL, INITIAL ENCOUNTER
[2019-10-14] MEDS: metFORMIN HCL 500 MG TABLET (FP) PO SCH (06:41)
[2019-10-14] MEDS: GABAPENTIN 300 MG CAPSULE PO SCH ×2 (06:41→15:05)
[2019-10-14 07:53] LABS: BASO % 0.3 % (0-2.0); EOS % 0.9 % (0-4.5); HEMATOCRIT 28.3 % (32.4-45.2); HEMOGLOBIN 9.6 GM/dL (10.7-15.3); LYMPH % 38.6 % (8-40); MCH 29.2 pg (25.7-33.7); MEAN CELL VOLUME 85.9 fl (80-96); MEAN PLT VOLUME 7.7 fl (7.5-11.1); MONO % 10.9 % (3.8-10.2); NEUT % 49.3 % (42.8-82.8); PLATELET COUNT 149 K/MM3 (134-434); RBC 3.29 M/mm3 (3.60-5.2); RDW 15.9 % (11.6-15.6); WHITE BLOOD COUNT 3.6 K/mm3 (4.0-10.0)
--- NOTE | 2019-10-14 12:33 | PN.GI ---
GI Progress Note Subjective: No blood per rectum. Feels well. - Objective Vital Signs: Vital Signs Temperature 97.8 F 10/14/19 09:54 Pulse Rate 61 10/14/19 09:54 Respiratory Rate 18 10/14/19 09:54 Blood Pressure 114/54 L 10/14/19 09:54 O2 Sat by Pulse Oximetry (%) 99 10/13/19 21:00 ...Palpate: Yes: Soft. No: Tenderness, Tenderness, Rebound Labs: CBC, BMP 10/14/19 05:56 10/13/19 09:45 INR, PTT INR 0.97 (0.83-1.09) 10/12/19 03:00 Assessment/Plan Likely diverticular bleed, resolved. Please obtain prior colonoscopy report. Patient deferring repeat colonoscopy at this time Emergent CTA for recurrent, clinically significant bleeding
--- NOTE | 2019-10-14 12:35 | PN ---
Progress Note, Physician History of Present Illness: Denies recurrent hematochezia or syncope. Allergies: ASA - Current Medication List Current Medications: Active Medications Gabapentin (Neurontin -) 300 mg PO TID [facility] Last Admin: 10/14/19 06:41 Dose: 300 mg Metformin HCl (Glucophage -) 500 mg PO BIDI [facility] Last Admin: 10/14/19 06:41 Dose: 500 mg - Objective Vital Signs: Vital Signs Temperature 97.8 F 10/14/19 09:54 Pulse Rate 61 10/14/19 09:54 Respiratory Rate 18 10/14/19 09:54 Blood Pressure 114/54 L 10/14/19 09:54 O2 Sat by Pulse Oximetry (%) 99 10/13/19 21:00 Constitutional: Yes: No Distress, Calm, Thin Neck: Yes: Supple Cardiovascular: Yes: Regular Rate and Rhythm Respiratory: Yes: Regular, CTA Bilaterally Gastrointestinal: Yes: Normal Bowel Sounds, Soft Edema: No Labs: CBC, BMP 10/14/19 05:56 10/13/19 09:45 INR, PTT INR 0.97 (0.83-1.09) 10/12/19 03:00 Problem List - Problems (1) Anemia Code(s): D64.9 - ANEMIA, UNSPECIFIED Qualifiers: Iron deficiency anemia type: chronic blood loss (2) LGI bleed Code(s): K92.2 - GASTROINTESTINAL HEMORRHAGE, UNSPECIFIED (3) Syncope Code(s): R55 - SYNCOPE AND COLLAPSE Qualifiers: Syncope type: vasovagal syncope Qualified Code(s): R55 - Syncope and collapse (4) Type 2 diabetes mellitus Code(s): E11.9 - TYPE 2 DIABETES MELLITUS WITHOUT COMPLICATIONS Qualifiers: Diabetes mellitus long term care pharmacist insulin use: without long term care pharmacist use Assessment/Plan ASSESSMENT: 1. Syncope most likely related to orthostatic hypotension secondary to acute hypovolemia reactionary to 2. Hematochezia referable to diverticular bleed, previously requiring transfusion 3. Acute blood loss anemia 4. [id number] diabetes mellitus 5. History of breast carcinoma post chemotherapy PLAN: 1. Monitor hemoglobin and transfuse to maintain hemoglobin equal or greater than 8.0 2. Declined colonoscopy 3. No additional cardiovascular evaluation or intervention is indicated at this point, patient may be d/lisette with f/u outpatient GI
[2019-10-14 15:06] VITALS: BP 118/76; PULSE 65; TEMP 98
[2019-10-14 15:28] VITALS: BMI 28.5
--- NOTE | 2019-10-14 15:57 | DS ---
Physical Examination Vital Signs: Vital Signs Temperature 98 F 10/14/19 14:05 Pulse Rate 65 10/14/19 14:05 Respiratory Rate 18 10/14/19 14:05 Blood Pressure 118/76 10/14/19 14:05 O2 Sat by Pulse Oximetry (%) 100 10/14/19 09:00 Constitutional: Yes: No Distress HENT: Yes: Atraumatic Neck: Yes: Supple Cardiovascular: Yes: Regular Rate and Rhythm Respiratory: Yes: CTA Bilaterally Gastrointestinal: Yes: Normal Bowel Sounds Extremities: Yes: WNL Neurological: Yes: Alert, Oriented Labs: CBC, BMP 10/14/19 05:56 10/13/19 09:45 Discharge Summary Problems reviewed: Yes Reason For Visit: SYNCOPE,LOWER GASTROINTESTINAL HEMORRHAGE Current Active Problems Anemia (Acute) LGI bleed (Acute) Syncope (Acute) Type 2 diabetes mellitus (Acute) Condition: Stable - Instructions Diet, Activity, Other Instructions: see your pmd/gi 2-3 days - Home Medications Comprehensive Discharge Medication List: Ambulatory Orders Gabapentin [Neurontin] 300 mg PO TID 10/12/19 Metformin HCl [Glucophage] 500 mg PO BID 10/12/19 Multivitamins [Tab-A-Vit -] 1 tab PO DAILY 10/12/19 pauline wright pmd/gi
== END 2019-10-14 18:00 | disposition home or self-care (01) | DRG 378 ==
LOC: JER 00:50 → JERBED 08:32 → J4W 23:08
PROVIDERS: ADMIT Internal Medicine; ATTEND Internal Medicine
PROC: 30233N1 Transfusion of Nonautologous Red Blood Cells into Peripheral Vein, Percutaneous Approach (ICD-10-PCS; principal; 2019-10-13)
DX: K57.91 Diverticulosis of intestine, part unspecified, without perforation or abscess with bleeding (principal); D62 Acute posthemorrhagic anemia; E11.9 Type 2 diabetes mellitus without complications; R55 Syncope and collapse; E86.1 Hypovolemia; W18.30XA Fall on same level, unspecified, initial encounter; Z85.3 Personal history of malignant neoplasm of breast
CPT/HCPCS: 36415; 36430; 36511; 70450-TC; 71045-TC-FY; 72125-TC; 80053; 81003; 82272; 82962; 83605; 84484; 85025; 85027; 85610; 86850; 86870; 86900; 86901; 86902; 86922; 87086; 93005; 93010; 99285-25; J7030; P9038; P9058

== ENCOUNTER 2020-11-29 13:51 | Inpatient (IN) | payer OTHER ==
[~2020-11-29 13:51] MED LIST: LACTATED RINGERS SOLUTION 1000 ML INFUS.BAG IV ONE
[2020-11-29 14:13] VITALS: BMI 27.3
[2020-11-29 15:22] LABS: BASO % 0.4 % (0-2.0); EOS % 0.4 % (0-4.5); HEMATOCRIT 29.1 % (32.4-45.2); HEMOGLOBIN 9.9 GM/dL (10.7-15.3); LYMPH % 28.7 % (8-40); MCH 31.3 pg (25.7-33.7); MCHC 34.2 g/dl (32.0-36.0); MEAN CELL VOLUME 91.6 fl (80-96); MEAN PLT VOLUME 7.8 fl (7.5-11.1); MONO % 6.2 % (3.8-10.2); NEUT % 64.3 % (42.8-82.8); PLATELET COUNT 175 K/MM3 (134-434); RBC 3.17 M/mm3 (3.60-5.2); RDW 13.5 % (11.6-15.6); WHITE BLOOD COUNT 6.9 K/mm3 (4.0-10.0)
[2020-11-29 15:29] LABS: INR 0.99 (0.83-1.09)
[2020-11-29 15:31] LABS: ACTIVATED PTT 27.4 SECONDS (25.2-36.5)
[2020-11-29 15:40] LABS: CHLORIDE 108 mmol/L (98-107); SODIUM 140 mmol/L (136-145)
[2020-11-29 15:42] LABS: CALCIUM 9.1 mg/dL (8.5-10.1)
[2020-11-29 15:43] LABS: ALBUMIN 3.5 g/dl (3.4-5.0); ANION GAP 7 MMOL/L (8-16); BLOOD UREA NITROGEN 21.2 mg/dL (7-18); CO2 25 mmol/L (21-32); GLUCOSE,RANDOM 140 mg/dL (74-106)
[2020-11-29 15:46] LABS: CREATININE 0.8 mg/dL (0.55-1.3); SGOT/AST 12 U/L (15-37); SGPT/ALT 13 U/L (13-61)
[2020-11-29 15:48] LABS: BILIRUBIN,TOTAL 0.2 mg/dL (0.2-1); TOT PROT 6.5 g/dl (6.4-8.2)
[2020-11-29 15:49] LABS: ALK PHOS 52 U/L (45-117)
[2020-11-29] MEDS ORDERED: DEXTROSE 5%-0.45% SALINE 1,000 ML IV SCH (18:00)
[2020-11-29 21:12] LABS: HEMOGLOBIN 8.7 GM/dL (10.7-15.3); MCH 30.6 pg (25.7-33.7); MCHC 33.5 g/dl (32.0-36.0); MEAN CELL VOLUME 91.6 fl (80-96); MEAN PLT VOLUME 7.7 fl (7.5-11.1); PLATELET COUNT 159 K/MM3 (134-434); RBC 2.84 M/mm3 (3.60-5.2); RDW 13.1 % (11.6-15.6); WHITE BLOOD COUNT 5.3 K/mm3 (4.0-10.0)
[2020-11-30] MEDS: PANTOPRAZOLE SODIUM 40 MG VIAL IVPUSH SCH ×3 (02:29→21:25)
[2020-11-30 08:16] LABS: BASO % 0.2 % (0-2.0); EOS % 0.5 % (0-4.5); HEMATOCRIT 29.1 % (32.4-45.2); HEMOGLOBIN 10.1 GM/dL (10.7-15.3); MCHC 34.6 g/dl (32.0-36.0); MEAN CELL VOLUME 89.6 fl (80-96); MEAN PLT VOLUME 7.8 fl (7.5-11.1); MONO % 7.7 % (3.8-10.2); NEUT % 73.6 % (42.8-82.8); PLATELET COUNT 142 K/MM3 (134-434); RBC 3.25 M/mm3 (3.60-5.2); RDW 14.2 % (11.6-15.6); WHITE BLOOD COUNT 4.1 K/mm3 (4.0-10.0)
[2020-11-30 08:26] LABS: INR 1.07 (0.83-1.09); PROTHROMBIN TIME (PATIENT) 13.1 SEC (9.7-13.0)
[2020-11-30 08:36] LABS: ALBUMIN 3.2 g/dl (3.4-5.0); CALCIUM 8.9 mg/dL (8.5-10.1)
[2020-11-30 08:37] LABS: MAGNESIUM 2.1 mg/dL (1.8-2.4)
[2020-11-30 08:40] LABS: CREATININE 0.6 mg/dL (0.55-1.3); PHOSPHOROUS 3.2 mg/dL (2.5-4.9)
[2020-11-30 08:41] LABS: BILIRUBIN,TOTAL 0.7 mg/dL (0.2-1)
[2020-11-30] MEDS: MUPIROCIN 2% TOPICAL OINTMENT FOR DECOLONIZATION NS SCH ×2 (13:48→21:25)
[2020-11-30] MEDS ORDERED: PT OWN MED DRAWER 7, Y5N ONE (15:27)
[2020-11-30] MEDS: DEXTROSE 5%-0.45% SALINE 1,000 ML IV SCH (16:01)
[2020-11-30 17:26] LABS: HEMOGLOBIN 9.4 GM/dL (10.7-15.3); MCH 30.2 pg (25.7-33.7); MCHC 33.5 g/dl (32.0-36.0); MEAN CELL VOLUME 90.2 fl (80-96); MEAN PLT VOLUME 8.1 fl (7.5-11.1); PLATELET COUNT 134 K/MM3 (134-434); RDW 14.4 % (11.6-15.6); WHITE BLOOD COUNT 3.3 K/mm3 (4.0-10.0)
[2020-11-30] MEDS: INSULIN SLIDING SCALE (NOVOLOG) 1 VIAL SQ SCH (21:24)
[2020-11-30] MEDS ORDERED: CHLORHEXIDINE GLUCONATE 4% CLEANSER FOR DECOLONIZATION TP SCH (22:00)
[2020-12-01] MEDS: INSULIN SLIDING SCALE (NOVOLOG) 1 VIAL SQ SCH ×2 (06:24→12:10)
[2020-12-01 07:10] LABS: HEMOGLOBIN 10.6 GM/dL (10.7-15.3); MCH 30.5 pg (25.7-33.7); MCHC 34.1 g/dl (32.0-36.0); MEAN CELL VOLUME 89.5 fl (80-96); MEAN PLT VOLUME 7.7 fl (7.5-11.1); PLATELET COUNT 155 K/MM3 (134-434); RBC 3.46 M/mm3 (3.60-5.2); RDW 13.8 % (11.6-15.6); WHITE BLOOD COUNT 3.5 K/mm3 (4.0-10.0)
[2020-12-01 07:35] LABS: CALCIUM 8.9 mg/dL (8.5-10.1)
[2020-12-01 07:38] LABS: ALBUMIN 3.5 g/dl (3.4-5.0); BLOOD UREA NITROGEN 8.2 mg/dL (7-18)
[2020-12-01 07:39] LABS: MAGNESIUM 1.8 mg/dL (1.8-2.4)
[2020-12-01 07:41] LABS: CREATININE 0.6 mg/dL (0.55-1.3)
[2020-12-01 07:42] LABS: PHOSPHOROUS 2.8 mg/dL (2.5-4.9)
[2020-12-01 07:45] LABS: BILIRUBIN,TOTAL 0.4 mg/dL (0.2-1); TOT PROT 6.5 g/dl (6.4-8.2)
[2020-12-01] MEDS ORDERED: PT OWN MED DRAWER 7, Y5N ONE (09:23)
[2020-12-01] MEDS: DEXTROSE 5%-0.45% SALINE 1,000 ML IV SCH (09:27)
[2020-12-01] MEDS: MUPIROCIN 2% TOPICAL OINTMENT FOR DECOLONIZATION NS SCH (09:27)
[2020-12-01] MEDS: PANTOPRAZOLE SODIUM 40 MG VIAL IVPUSH SCH (09:27)
[2020-12-01 12:56] VITALS: BP 106/90
[2020-12-01 15:53] VITALS: PULSE 56; TEMP 98.3
== END 2020-12-01 15:58 | disposition home or self-care (01) | DRG 378 ==
LOC: JER 13:51 → JERBED 20:46 → JICU 11-30 03:46
PROVIDERS: ADMIT Internal Medicine; ATTEND Student in an Organized Health Care Education/Training Program
DX: K57.93 Diverticulitis of intestine, part unspecified, without perforation or abscess with bleeding (principal); D62 Acute posthemorrhagic anemia; E11.40 Type 2 diabetes mellitus with diabetic neuropathy, unspecified; I10 Essential (primary) hypertension; I95.89 Other hypotension; R91.1 Solitary pulmonary nodule; Z85.3 Personal history of malignant neoplasm of breast
CPT/HCPCS: 36415; 36430; 74174-TC; 80053; 82550; 82728; 82962; 83036; 83540; 83550; 83605; 83735; 84100; 84484; 85025; 85027; 85610; 85730; 86140; 86850; 86870; 86900; 86901; 86902; 86922; 93005; 93010; 99291; C9803; P9058; Q9967; U0003; U0005

== ENCOUNTER 2025-01-04 08:07 | Observation (INO) | payer OTHER ==
[2025-01-04 08:21] VITALS: BMI 26.9
[2025-01-04 09:47] LABS: ABSOLUTE IMMATURE GRANULOCYTES 0.01 x10^3/uL (0.0-0.031); BASOPHILS # 0.01 x10^3/uL (0.01-0.08); EOSINOPHIL % 0.7 % (0.7-5.8); EOSINOPHILS # 0.02 x10^3/uL (0.04-0.36); HEMATOCRIT 26.8 % (34.1-44.9); HEMOGLOBIN 8.5 g/dL (11.2-15.7); MCHC 31.7 g/dl (32.2-35.5); MEAN CELL VOLUME 93.1 fl (79.4-94.8); MONOCYTE % 7.4 % (4.7-12.5); PLATELET COUNT 198 x10^3/uL (182-369)
[2025-01-04 09:57] LABS: INR 1.06 (0.83-1.09); PROTHROMBIN TIME (PATIENT) 11.5 SEC (9.7-13.0)
[2025-01-04 10:00] LABS: ACTIVATED PTT 29.5 SECONDS (25.2-36.5)
[2025-01-04 10:06] LABS: POTASSIUM 3.9 mmol/L (3.5-5.1)
[2025-01-04 10:08] LABS: ALBUMIN 3.6 g/dl (3.4-5.0); CALCIUM 8.8 mg/dL (8.5-10.1)
[2025-01-04 10:09] LABS: BLOOD UREA NITROGEN 21.5 mg/dL (7-18)
[2025-01-04 10:12] LABS: CREATININE 0.6 mg/dL (0.55-1.3)
[2025-01-04 10:13] LABS: TOT PROT 6.6 g/dl (6.4-8.2)
[2025-01-04 10:33] LABS: BILIRUBIN,TOTAL 0.3 mg/dL (0.2-1)
[2025-01-04] MEDS: INSULIN ASPART SLIDING SCALE (NOVOLOG) 1 VIAL SQ SCH (17:40)
[2025-01-04 21:38] VITALS: RESP 18; TEMP 98.2
[2025-01-05 06:39] VITALS: BP 100/58; PULSE 67
[2025-01-05] MEDS ORDERED: CHOLECALCIFEROL (VIT D3) 1,000 UNIT (25 MCG) TABLET PO SCH (10:00)
[2025-01-05] MEDS ORDERED: GABAPENTIN 300 MG CAPSULE PO SCH (10:00)
[2025-01-05] MEDS ORDERED: PANTOPRAZOLE 40 MG TABLET PO SCH (10:00)
== END 2025-01-05 08:03 | disposition left against medical advice (07) ==
LOC: JER 08:07 → INTOOBSV 11:30 → JERBED 11:30 → UNDOADMOB 11:30 → JERBED 12:41 → J5S 13:48
PROVIDERS: ADMIT Internal Medicine
DX: K62.5 Hemorrhage of anus and rectum (principal); D50.9 Iron deficiency anemia, unspecified; K57.90 Diverticulosis of intestine, part unspecified, without perforation or abscess without bleeding; M19.90 Unspecified osteoarthritis, unspecified site; E11.40 Type 2 diabetes mellitus with diabetic neuropathy, unspecified; Z85.3 Personal history of malignant neoplasm of breast
CPT/HCPCS: 36415; 71045-TC-FY; 80053; 82272; 82962; 85025; 85610; 85730; 86850; 86870; 86880; 86900; 86901; 86902; 93005; 93010; 99285-25; G0378